=== PATIENT | male | born 1980 | race American Indian/Alaskan Native ===

== ENCOUNTER 2019-04-01 12:46 | Emergency (ER) | payer SELFPAY ==
[2019-04-01 12:51] VITALS: BP 129/93
--- NOTE | 2019-04-01 12:56 | Event Note ---
ED Screening Note Date of service: 04/01/19 Time: 12:55 ED Screening Note: 38 y o ,feliz presents with dental pain and swelling to upper left jaw This initial assessment/diagnostic orders/clinical plan/treatment(s) is/are subject to change based on patients health status, clinical progression and re- assessment by fellow clinical providers in the ED. Further treatment and workup at subsequent clinical providers discretion. Patient/guardian urged not to elope from the ED as their condition may be serious if not clinically assessed and managed. Initial orders include: acc eval
--- NOTE | 2019-04-01 14:32 | Emergency Department Report ---
ED General Adult HPI - General Chief complaint: Dental/Oral Stated complaint: FACE SWOLLEN Time Seen by Provider: 04/01/19 13:08 Source: patient Mode of arrival: Ambulatory Limitations: No Limitations - History of Present Illness Initial comments: 38-year-old male patient complains of left upper dental pain with facial swelling 2 days. He rates his pain as a 10/10 in severity. He states he has an appointment with the dental specialist tomorrow. He denies any fevers/chills/sweats/bodyaches or difficulty with swallowing. He reports pain improves with Tylenol. -: Sudden Consistency: constant - Related Data Previous Rx's Medication Instructions Recorded Last Taken Type Amoxicillin [Trimox CAP] 500 mg PO Q8H 7 Days #21 capsule 04/01/19 Unknown Rx Allergies Allergy/AdvReac Type Severity Reaction Status Date / Time No Known Allergies Allergy Unverified 04/01/19 12:48 ED Review of Systems ROS: Stated complaint: FACE SWOLLEN Other details as noted in HPI Comment: All other systems reviewed and negative ENT: as per HPI ED Past Medical Hx - Past Medical History Previous Medical History?: No - Surgical History Past Surgical History?: No - Social History Smoking Status: Never Smoker Substance Use Type: None - Medications Home Medications: Home Medications Medication Instructions Recorded Confirmed Last Taken Type Amoxicillin [Trimox CAP] 500 mg PO Q8H 7 Days #21 capsule 04/01/19 Unknown Rx ED Physical Exam - General Limitations: No Limitations General appearance: alert, in no apparent distress - Head Head exam: Present: atraumatic, normocephalic, other (left sided facial swelling noted without overlying erythema. Area is mildly tender to palpation) - Eye Eye exam: Present: normal appearance. Absent: scleral icterus - ENT ENT exam: Present: other - Expanded ENT Exam Expanded Mouth exam: Absent: drooling, trismus, muffled voice Teeth exam: Present: dental caries 1 - Dental Tenderness (erythema noted without abscess) Throat exam: Positive: normal inspection - Neck Neck exam: Present: full ROM. Absent: tenderness, lymphadenopathy - Respiratory Respiratory exam: Absent: respiratory distress - Cardiovascular Cardiovascular Exam: Present: regular rate - Neurological Exam Neurological exam: Present: alert, oriented X3 - Psychiatric Psychiatric exam: Present: normal affect, normal mood - Skin Skin exam: Present: warm, dry, intact, normal color. Absent: rash, erythema ED Course Vital Signs 04/01/19 12:48 Temperature 98.5 F Pulse Rate 94 H Respiratory 18 Rate Blood Pressure 129/93 O2 Sat by Pulse 99 Oximetry ED Medical Decision Making - Medical Decision Making 38-year-old male patient complains of left upper dental pain with facial swelling 2 days. He rates his pain as a 10/10 in severity. He states he has an appointment with the dental specialist tomorrow. She is requesting amoxicillin stating that he cannot afford clindamycin. Vitals are normal. Patient is stable for discharge home and follow-up with his dental specialist tomorrow as scheduled. Critical care attestation.: If time is entered above; I have spent that time in minutes in the direct care of this critically ill patient, excluding procedure time. ED Disposition Clinical Impression: Dental infection Disposition: DC-01 TO HOME OR SELFCARE Is pt being admited?: No Condition: Stable Instructions: Dental Abscess (ED) Additional Instructions: Return to the emergency department if he developed any new or worsening symptoms Prescriptions: Amoxicillin [Trimox CAP] 500 mg PO Q8H 7 Days #21 capsule
== END 2019-04-01 14:52 | disposition home or self-care (01) ==
LOC: ED 12:46
DX: K04.7 Periapical abscess without sinus (principal)